=== PATIENT | female | born 1970 | race Hispanic/Latino ===

== ENCOUNTER 2018-07-26 14:47 | Outpatient (CLI) | payer OTHER | END 2018-07-26 14:48 | disposition home or self-care (01) | LOC: BICMAMMO 14:47 | PROVIDERS: ATTEND Internal Medicine | DX: Z12.31 Encounter for screening mammogram for malignant neoplasm of breast (principal); Z80.3 Family history of malignant neoplasm of breast | CPT/HCPCS: 77063; 77067 ==

== ENCOUNTER 2018-10-14 09:33 | Emergency (ER) | payer OTHER ==
[2018-10-14] MEDS ORDERED: Lidocaine 1% w/Epinephrine 1:100K 20 ML VIAL ONE (10:20)
[2018-10-14] MEDS ORDERED: Morphine 4 MG/ML VIAL ONE (10:24)
--- NOTE | 2018-10-14 10:54 | RAD ---
LEFT WRIST 3 VIEWS: HISTORY: Trauma. COMPARISON: None. FINDINGS: There is intraarticular comminuted distal radius fracture with lateral subluxation and displacement o f the carpus. There is dorsal displacement of the ulna. There is intraarticular fracture of the dis mirna ulna extending to the distal radial ulnar joint and the ulna carpal joint. IMPRESSION: Comminuted intraarticular distal radius and ulnar fractures with lateral radial subluxation. POS: [facility]
[2018-10-14] MEDS ORDERED: Ketorolac Tromethamine 30 MG/ML VIAL ONE (11:31)
--- NOTE | 2018-10-14 12:05 | RAD ---
LEFT WRIST 3 VIEWS: HISTORY: Fall post reduction. COMPARISON: Radiograph same day. FINDINGS: Improved alignment intraarticular distal radius and ulnar fractures. There is volar displacement of the carpus and the distal radial fragment. IMPRESSION: Mild improved transverse alignment with volar displacement of the carpus and distal radial fragment. POS: [facility]
== END 2018-10-14 11:52 | disposition home or self-care (01) ==
LOC: ERS 09:33
DX: S52.502A Unspecified fracture of the lower end of left radius, initial encounter for closed fracture (principal); S52.602A Unspecified fracture of lower end of left ulna, initial encounter for closed fracture; W10.9XXA Fall (on) (from) unspecified stairs and steps, initial encounter
CPT/HCPCS: 25605; 96374; 96375; J1885; J2001; J2270

== ENCOUNTER 2018-10-16 09:19 | Day surgery (SDC) | payer OTHER ==
[2018-10-15 16:21] VITALS: BMI 32.9
[2018-10-16] MEDS ORDERED: CEFAZOLIN 2 GM/50 ML BAG ONE (11:14)
[2018-10-16] MEDS ORDERED: Fentanyl 100 MCG/2 ML VIAL ONE ×2 (11:16→13:08)
[2018-10-16] MEDS ORDERED: Midazolam HCl 2 mg/2 ml Vial ONE (11:16)
--- NOTE | 2018-10-16 14:48 | RAD ---
LEFT WRIST INTRAOPERATIVE FLUOROSCOPY THREE VIEWS: History: Wrist fracture. FINDINGS: Intraoperative fluoroscopy was provided for internal fixation as performed by Dr. Jacob. Spot flu oroscopic images show volar compression plate, multiple screws and a wire to transfix the distal radi al fracture in anatomic alignment. Fluoro time: 20.4 seconds. POS: [facility]
[2018-10-16] MEDS ORDERED: PROPOFOL 200 MG/20 ML VIAL ONE (18:39)
[2018-10-16] MEDS ORDERED: PHENYLEPHRINE-NS 100 MCG/ML 10 ML SYRINGE ONE (18:39)
[2018-10-16] MEDS ORDERED: Lidocaine 1% PF 5 ML VIAL ONE (18:39)
[2018-10-16] MEDS ORDERED: Ondansetron PF 4 MG/2 ML Vial ONE (18:39)
[2018-10-16] MEDS ORDERED: ePHEDrine/0.9% NaCl/PF SYRINGE 50 mg/10 ml ONE (18:39)
[2018-10-16] MEDS ORDERED: Bupivacaine HCl 0.5%/Epinephrine 1:200,000/PF 30 ml Vial ONE (19:21)
--- NOTE | 2018-10-17 08:21 | OP ---
DATE OF PROCEDURE: 10/16/2018 PROCEDURE PERFORMED: Open reduction and internal fixation of left distal radius fracture and pinning of the distal radioulnar joint. PREOPERATIVE DIAGNOSIS: Left Kim distal radius fracture with comminution and disruption of the distal radioulnar joint. POSTOPERATIVE DIAGNOSIS: Left Kim distal radius fracture with comminution and disruption of the distal radioulnar joint. COMPLICATIONS: None. ESTIMATED BLOOD LOSS: Minimal. FACER OPERATOR: Frantz Solomon. IMPLANTS: Synthes volar distal radius plate and a 0.062 K-wire was utilized. INDICATIONS: Ms. Mae is a 47-year-old female who fell. She fractured her distal radius. She was indicated for open reduction and internal fixation to restore anatomic alignment and promote healing and prevent posttraumatic arthritis and other issues with her displaced fracture. She elected to proceed. DESCRIPTION OF PROCEDURE: Ms. Mae was identified in the preoperative holding area. Her correct extremity was marked. She was carried to the operating room. She was positioned supine. General anesthesia was induced. A multidisciplinary time-out was performed. The left upper extremity was prepped and draped in sterile fashion. We began the procedure with a volar approach to the distal radius. We dissected down through the subcutaneous tissues to the FCR tendon. The tendon sheath was opened. We retracted the tendon and exposed the underlying distal radius fracture. The pronator quadratus was elevated. The patient's fracture was reduced using traction and a Henderson elevator. We reduced the multi-fragment comminuted fracture. At this point, we placed the pin across the distal radius fracture and radial styloid. We then applied a Synthes volar distal radius plate. Multiple screws were placed distally and proximally. We took x-ray images confirming plate placement and that all hardware was appropriate. At this point, we palpated the DRUJ, it was very unstable. We held it in a reduced position. We then placed a K-wire across the radius and ulna transfixing the DRUJ. This again was guided on x-ray. We took final images. We thoroughly irrigated with copious lavage. We then closed with 2-0 Vicryl suture and j luis for the skin. A sterile dressing was applied at this point. The patient was taken to the recovery room in good condition. Job ID: [id number]
== END 2018-10-16 16:35 | disposition home or self-care (01) ==
LOC: SDC 09:19
PROVIDERS: ATTEND Orthopaedic Surgery
PROC: 0PH Upper Bones, Insertion (ICD-10-PCS; principal; 2018-10-16)
PROC: 0PSJ04Z Reposition Left Radius with Internal Fixation Device, Open Approach (ICD-10-PCS; principal; 2018-10-16)
PROC: 0RH Upper Joints, Insertion (ICD-10-PCS; principal; 2018-10-16)
DX: S52.562A Barton's fracture of left radius, initial encounter for closed fracture (principal); M25.332 Other instability, left wrist; K21.9 Gastro-esophageal reflux disease without esophagitis; Z79.1 Long term (current) use of non-steroidal anti-inflammatories (NSAID); Z79.899 Other long term (current) drug therapy; W10.9XXA Fall (on) (from) unspecified stairs and steps, initial encounter; Y99.0 Civilian activity done for income or pay
CPT/HCPCS: 76001; C1713; J0670; J2001; J2250; J2405; J2704; J3010

== ENCOUNTER 2019-09-19 11:04 | Outpatient (CLI) | payer OTHER ==
--- NOTE | 2019-09-19 11:54 | MMO ---
Bilateral MAMMO Bilat Screen [facility]. CLINICAL HISTORY: Patient is 48 years old and is seen for screening. The patient has the following family history of breast cancer: maternal aunt, malignant (generic). The patient has no personal history of cancer. VIEWS: The views performed were: bilateral craniocaudal with tomosynthesis and bilateral mediolateral oblique with tomosynthesis. FILMS COMPARED: The present examination has been compared to a prior imaging study performed at [facility] on 07/26/2018. This study has been interpreted with the assistance of computer-aided detection. MAMMOGRAM FINDINGS: There are scattered fibroglandular densities. There are no suspicious masses, suspicious calcifications, or new areas of architectural distortion. IMPRESSION: THERE IS NO MAMMOGRAPHIC EVIDENCE OF MALIGNANCY. A ROUTINE FOLLOW-UP MAMMOGRAM IN 1 YEAR IS RECOMMENDED. THE RESULTS OF THIS EXAM WERE SENT TO THE PATIENT. ACR BI-RADS Category 1 - Negative MAMMOGRAPHY NOTE: 1. A negative mammogram report should not delay a biopsy if a dominant of clinically suspicious mass is present. 2. Approximately 10% to 15% of breast cancers are not detected by mammography. 3. Adenosis and dense breasts may obscure an underlying neoplasm. Reported by: ALBA MULLER MD Electonically Signed: [id number]
== END 2019-09-19 11:05 | disposition home or self-care (01) ==
LOC: BICMAMMO 11:04
PROVIDERS: ATTEND Internal Medicine
DX: Z12.31 Encounter for screening mammogram for malignant neoplasm of breast (principal); Z80.3 Family history of malignant neoplasm of breast
CPT/HCPCS: 77063; 77067

== ENCOUNTER 2024-04-28 11:17 | Outpatient (CLI) | payer OTHER | END 2024-04-28 11:18 | disposition home or self-care (01) | LOC: BICMAMMO 11:17 | PROVIDERS: ATTEND Internal Medicine | DX: Z12.31 Encounter for screening mammogram for malignant neoplasm of breast (principal); Z80.3 Family history of malignant neoplasm of breast | CPT/HCPCS: 77063; 77067 ==